=== PATIENT | male | born 1980 | race African-American/Black ===

== ENCOUNTER 2016-10-31 18:40 | Emergency (ER) | payer MEDICAID, OTHER ==
[~2016-10-31] VITALS: Ht 175.3 cm; Wt 66.0 kg
[2016-10-31 18:42] VITALS: BP 134/84; PULSE 76; RESP 20; TEMP 98; O2SAT 99
--- NOTE | 2016-10-31 23:08 | PD ---
HPI Chief Complaint: Complaint Time Seen by Provider: 23:08 Travel History International Travel<30 days: No Contact w/Intl Traveler<30days: No Traveled to known affect area: No History of Present Illness HPI 36-year-old male presents to [facility] for evaluation of burning with urination for months. Patient states that he may have an STD or UTI. Denies any significant pain. States that he thinks sometimes may have penile discharge. Is in a monogamous relationship with his cough and but does not use condom prophylaxis. No fever or chills. States it is burning only when he urinates. Denies any testicular pain. Denies abdominal pain. He has no other symptoms to report. PFSH Past Medical History Medical History: Denies Significant Hx Social History Alcohol Use: Yes Tobacco Use: Yes Allergies-Medications (Allergen,Severity, Reaction): Coded Allergies: No Known Allergies (Unverified , 10/31/16) Review of Systems Except as stated in HPI: all other systems reviewed are Neg Physical Exam Narrative GENERAL: Well-nourished, well-developed outpatient no acute distress SKIN: Warm and dry. HEAD: Normocephalic. EYES: No scleral icterus. No injection or drainage. NECK: Supple, trachea midline. No JVD or lymphadenopathy. CARDIOVASCULAR: Regular rate and rhythm without murmurs, gallops, or rubs. RESPIRATORY: Breath sounds equal bilaterally. No accessory muscle use. GENITOURINARY: Deferred by patient GASTROINTESTINAL: Abdomen soft, non-tender, nondistended. MUSCULOSKELETAL: No cyanosis, or edema. BACK: Nontender without obvious deformity. No CVA tenderness. Data Data Last Documented VS Vital Signs Date Time Temp Pulse Resp B/P Pulse Ox O2 Delivery O2 Flow Rate FiO2 10/31/16 18:42 98.0 76 20 134/84 99 Room Air Orders Urinalysis - C+S If Indicated (10/31/16 23:10) Gc And Chlamydia Pcr (10/31/16 23:10) Ceftriaxone Inj (Rocephin Inj) (10/31/16 23:15) Azithromycin (Zithromax) (10/31/16 23:15) Labs Laboratory Tests Test 11/01/16 00:25 Urine Color YELLOW Urine Turbidity CLEAR Urine pH 5.5 Urine Specific [place] 1.026 Urine Protein NEG mg/dL Urine Glucose (UA) NEG mg/dL Urine Ketones NEG mg/dL Urine Occult Blood NEG Urine Nitrite NEG Urine Bilirubin NEG Urine Urobilinogen LESS THAN 2.0 MG/DL Urine Leukocyte Esterase TRACE Urine RBC 4 /hpf Urine WBC 5 /hpf Urine Mucus FEW /lpf Microscopic Urinalysis Comment CULT NOT INDICATED Chlamydia trachomatis DNA NOT DETECTED (PCR) Neisseria gonorrhoeae DNA NOT DETECTED (PCR) MDM Medical Decision Making Medical Screen Exam Complete: Yes Emergency Medical Condition: Yes Medical Record Reviewed: Yes Differential Diagnosis Dysuria versus UTI versus urethritis versus STD Narrative Course 36-year-old male presents for his department for evaluation. Patient appears without distress. Urinalysis is without acute concern. Patient is treated empirically for gonorrhea and chlamydia discharged. He is advised that he will receive a letter if indeed this does come back positive. He agrees to this clinic care. He will return immediately with any acute worsening of symptoms. Diagnosis Primary Impression: Dysuria Referrals: [facility] Dept. Patient Instructions: Dysuria (ED), General Instructions, Safe Sex (ED) Additional Instructions: Follow-up with a primary care provider Return immediately to the emergency department with any acute worsening of symptoms Med/Other Pt SpecificInfo: No Change to Meds Disposition: 01 DISCHARGE HOME Condition: Stable Yanique Leiva Oct 31, 2016 23:08
[2016-10-31] MEDS ORDERED: AZITHROMYCIN 250 MG TAB PO ONE (23:15)
[2016-10-31] MEDS ORDERED: cefTRIAXone 250 MG VIAL IM ONE (23:15)
[2016-11-01 00:37] LABS: BLOOD, URINE NEG (NEG); GLUCOSE,URINE NEG (NEG); KETONE, URINE NEG (NEG); MUCUS URINE FEW /lpf (OCC); NITRITE,URINE NEG (NEG); PH, URINE 5.5 (5.0-8.5); URINE COLOR YELLOW (YELLW/STRAW)
[2016-11-01 00:38] LABS: COMMENT (UR) CULT NOT INDICATED; CULTURE IF INDICATED CULT NOT INDICATED
[2016-11-01 02:25] LABS: CHLAMYDIA PCR NOT DETECTED (NOT DETECT); NEISSERIA PCR NOT DETECTED (NOT DETECT)
== END 2016-11-01 00:48 | disposition home or self-care (01) ==
LOC: NEPB 18:40
DX: R30.0 Dysuria (principal)
CPT/HCPCS: 81001; 87491; 87591; 96372; 99283; J0696